=== PATIENT | male | born 1955 | race Caucasian/White ===

== ENCOUNTER 2018-09-22 07:03 | Day surgery (SDC) | payer MEDICARE, MEDICAID ==
[~2018-09-22] VITALS: Ht 180.3 cm; Wt 96.6 kg
[2018-09-22] MEDS ORDERED: MIDAZOLAM HCL 2 MG/2 ML VIAL ONE (07:36)
[2018-09-22] MEDS ORDERED: IODIXANOL 320MG/ML 100 ML BOTTLE IV ONE (07:37)
[2018-09-22] MEDS ORDERED: ASPIRIN/SOD BICARB/CITRIC ACID 324MG TAB EFF ONE (07:37)
[2018-09-22] MEDS ORDERED: LIDOCAINE HCL 1% 20ML VIAL (Pyxis) INJ ONE (07:37)
[2018-09-22] MEDS ORDERED: FENTANYL CITRATE/PF 50MCG/ML 2ML VIAL ONE (07:39)
[2018-09-22] MEDS ORDERED: RIVA10TA MT (07:39)
[2018-09-22] MEDS ORDERED: ONDANSETRON HCL 4MG/2ML INJ IV PRN (09:00)
[2018-09-22] MEDS ORDERED: MORPHINE SULFATE 2 MG/ML CPJ (NOT FOR IM USE) IV PRN (09:00)
[2018-09-22] MEDS ORDERED: ACETAMINOPHEN 325MG TABLET PO PRN (09:00)
[2018-09-22] MEDS ORDERED: NICARDIPINE 100MCG/ML 10ML VIAL (CATH LAB) IV ONE ×2 (10:09)
[2018-09-22] MEDS ORDERED: HEPARIN SODIUM 1,000 UNIT/1ML VIAL IV ONE (10:09)
== END 2018-09-22 14:35 | disposition home or self-care (01) ==
LOC: CCL 07:03
PROVIDERS: ATTEND Specialist
DX: I25.118 Atherosclerotic heart disease of native coronary artery with other forms of angina pectoris (principal); I42.9 Cardiomyopathy, unspecified; E78.5 Hyperlipidemia, unspecified; I10 Essential (primary) hypertension; I48.91 Unspecified atrial fibrillation; I48.2 Chronic atrial fibrillation; Z79.01 Long term (current) use of anticoagulants; Z95.1 Presence of aortocoronary bypass graft; Z79.899 Other long term (current) drug therapy
CPT/HCPCS: 93458; 99152; 99153; C1769; C1887; C1893; J1644; J2250; J3010; J3490; Q9967; 93459; G0500

== ENCOUNTER 2022-09-09 12:07 | Emergency (ER) | payer MEDICARE, MEDICAID ==
[~2022-09-09] VITALS: Ht 180.3 cm; Wt 89.8 kg
[~2022-09-09 12:07] MED LIST: RIVA10TA MT
[2022-09-09 12:18] VITALS: O2SAT 98
[2022-09-09] MEDS ORDERED: IBUPROFEN 400MG TABLET PO ONE (13:00)
[2022-09-09] MEDS ORDERED: HYDROCODONE/ACETAMINOPHEN 5/325MG TABLET PO ONE (13:00)
[2022-09-09] MEDS ORDERED: MORPHINE SULFATE 10 MG/ML CPJ IM ONE (15:45)
[2022-09-09] MEDS ORDERED: IBUP-2028 MT (18:46)
[2022-09-09] MEDS ORDERED: TOPUD PO (18:46)
[2022-09-09] MEDS ORDERED: LIDO1ADH23 TP (18:46)
[2022-09-09 19:40] VITALS: BP 132/72; PULSE 82; RESP 20; TEMP 98.3
== END 2022-09-09 19:40 | disposition home or self-care (01) ==
LOC: ER 12:07
DX: S52.501A Unspecified fracture of the lower end of right radius, initial encounter for closed fracture (principal); E11.9 Type 2 diabetes mellitus without complications; W18.39XA Other fall on same level, initial encounter; Y93.89 Activity, other specified; Y92.89 Other specified places as the place of occurrence of the external cause; Y99.8 Other external cause status
CPT/HCPCS: 99284; 24650; 73030; 73090; 73110; 73562; 96372; J2270; A4565